=== PATIENT | male | born 1960 | race Caucasian/White ===

== ENCOUNTER 2016-08-17 07:50 | Day surgery (SDC) | payer OTHER ==
[~2016-08-17 07:50] MED LIST: Buffered Lidocaine 1% SYRIN* 3 ML/SYR SYRINGE INTRADERM ONE; Dexamethasone IV* 4 MG/ML 1 ML (4 MG) IV SLOW PU ONE; Famotidine IV* 10 MG/ML 2 ML (20 mg) IV ONE
[2016-08-17] MEDS ORDERED: ceFAZolin 2 GM PREMIX(*) 2 GM/50 ML BAG IVPB ONE (08:05)
[2016-08-17] MEDS ORDERED: Famotidine IV* 10 MG/ML 2 ML (20 mg) ONE (08:05)
[2016-08-17] MEDS ORDERED: Dexamethasone IV* 4 MG/ML 1 ML (4 MG) ONE (08:06)
[2016-08-17] MEDS ORDERED: fentaNYL* 50 MCG/ML 2 ML VIAL (100 MCG VIAL) ONE (09:06)
[2016-08-17] MEDS ORDERED: Lidocaine 2% PF * 5 ML VIAL ONE (09:06)
[2016-08-17] MEDS ORDERED: Propofol* 10 MG/ML 20 ML BTL IV PUSH ONE (09:06)
[2016-08-17] MEDS ORDERED: Midazolam* 1 MG/ML 2 ML VIAL (2 MG) ONE (09:06)
[2016-08-17] MEDS ORDERED: fentaNYL* 50 MCG/ML 2 ML VIAL (100 MCG VIAL) IV PRN (09:13)
[2016-08-17] MEDS ORDERED: Levalbuterol 0.63MG/3ML NEB INH PRN (09:13)
[2016-08-17] MEDS ORDERED: PROCHLORPERAZINE INJ 5 MG/ML 2 ML VIAL IV PRN (09:13)
[2016-08-17] MEDS ORDERED: oxyCODONE/Acetamin 5/325 MG* TAB PO PRN (09:13)
[2016-08-17] MEDS ORDERED: Bupivacaine 0.25% SDV* 30 ML ONE (09:13)
[2016-08-17] MEDS ORDERED: Ketorolac INJ* 30 MG/ML 1 ML VIAL ONE (09:30)
[2016-08-17] MEDS ORDERED: Phenylephrine IV* 40 MCG/ML 10 ML SYRINGE ONE (09:32)
[2016-08-17] MEDS ORDERED: Ondansetron INJ* 2 MG/ML VIAL ONE (09:42)
[2016-08-17 11:10] VITALS: BP 115/80
--- NOTE | 2016-08-17 11:51 | OP ---
DATE OF OPERATION: 08/17/16 - [facility] DATE OF : 56 SURGEON: Rod Moore MD. VERIFICATION LEAD: JERONIMO Redd ANESTHESIOLOGIST: Dr. Cole. ANESTHESIA: General. PRE-OP DIAGNOSIS: Right wrist pisotriquetral degenerative joint disease. POST-OP DIAGNOSIS: Right wrist pisotriquetral degenerative joint disease. OPERATIVE PROCEDURE: Excision of right wrist pisiform bone. INDICATIONS: Harsh is a 55-year-old gentleman who has had progressive right ulnar sided wrist pain. He has tried bracing and an injection into the ulnar carpal joint, which provided absolutely no relief. He then got an MRI which showed significant edema on both sides of the pisotriquetral joint. He was very tender to the compression and loading of the pisotriquetral joint. It is significantly affecting his ability to perform his work duties. We had talked about treatment options to include an image guided injection to the pisotriquetral joint versus excision of right wrist pisiform bone. He did not want the injection and want to proceed with excision of the pisiform. So talked him about surgery and what to expect and risks and benefits and he elected to proceed. ESTIMATED BLOOD LOSS: 5 mL. COMPLICATIONS: None. FINDINGS: Absolutely no cartilage on either side of the articular surfaces. DESCRIPTION OF PROCEDURE: Dewey was seen in the preoperative holding area. The correct side, site, and procedure were identified. We came back to the operating room and anesthesia was induced and the arm was prepped and draped in usual fashion. A formal time-out was performed. I began by exsanguinating the extremity with the Esmarch and the tourniquet was inflated to 250 mmHg. A V-shaped incision was made centered over the pisiform bone and crossing the volar wrist flexion crease at 45 degree angle. Full- thickness flaps were raised off of the FCU tendon paratenon proximally and over the pisiform bone and a little bit distally. The bone was identified and longitudinal split was made in the overlying fibers of the FCU tendon. Everything was then raised off subperiosteally with [place] blades and the soft tissue was released circumferentially, taking care to preserve passing longitudinal fibers of the FCU tendon. Once I had the bone mobilized I placed a penetrating towel clip and used this to retract the bone as I continued to perform soft tissue release circumferentially. The pisiform was excised. The articular surface was inspected. There was absolutely no articular cartilage left. I then irrigated out the wound. The FCU tendon was closed up side-to- side with some 3-0 Ethibond yubnqa-ie-yryia sutures. The skin was closed with 4 -0 nylon suture. The operative area was infiltrated with 0.25% Marcaine prior to closing the wound. The wound was dressed with Xeroform, 4x4's, sterile Webril and then a volar wrist cock-up splint was placed. Tourniquet was deflated. The fingers pinked up immediately. He was then woken back up and taken to the recovery room in stable condition. [id number] #: [id number] JAYDEN
== END 2016-08-17 11:03 | disposition home or self-care (01) ==
LOC: OREAST 07:50
PROVIDERS: ATTEND Orthopaedic Surgery Hand Surgery
DX: M19.032 Primary osteoarthritis, left wrist (principal); F17.210 Nicotine dependence, cigarettes, uncomplicated
CPT/HCPCS: 88304; 88311; J0690; J1100; J1885; J2250; J2405; J2704; J3010